=== PATIENT | female | born 1975 | race African-American/Black ===

== ENCOUNTER 2017-03-09 11:19 | Observation (INO) | payer BC ==
[~2017-03-09] VITALS: Ht 152.4 cm; Wt 86.6 kg
[~2017-03-09 11:19] MED LIST: CYCL-36 PO; LISI2.5T3 PO
[2017-03-09] MEDS ORDERED: IOHEXOL 350 MG/ML 10 ML VIAL (for RAD DIAG) IVCONTRAST ONE (11:20)
[2017-03-09 11:21] VITALS: BP 168/86; PULSE 20; PULSE 97; RESP 14; RESP 20; TEMP 99; O2SAT 97
[2017-03-09] MEDS ORDERED: ONDANSETRON HCL 4 MG/2 ML VIAL IV PUSH ONE (12:00)
[2017-03-09] MEDS ORDERED: PHENYLEPH/NS 1000 MCG/10 ML SYR IV ONE (12:00)
[2017-03-09] MEDS ORDERED: GLYCOPYRROLATE 1 MG/5 ML SYRINGE IV PUSH ONE (12:00)
[2017-03-09] MEDS ORDERED: KETOROLAC TROMETHAMINE 30 MG/ML (IVP) VIAL IV PUSH ONE (12:00)
[2017-03-09] MEDS ORDERED: DEXAMETHASONE SOD PHOS 4 MG/ML VIAL IV ONE (12:00)
[2017-03-09] MEDS ORDERED: PROPOFOL 200 MG/20 ML AMP IV ONE (12:00)
[2017-03-09] MEDS ORDERED: NEOSTIGMINE 5 MG/5 ML SYRINGE IV PUSH ONE (12:00)
[2017-03-09] MEDS ORDERED: LIDOCAINE HCL 1% PF 5 ML SYRINGE OTHER ONE (12:00)
[2017-03-09] MEDS ORDERED: ROCURONIUM INJ 50 MG/5 ML SYRINGE IV PUSH ONE (12:00)
[2017-03-09 12:20] LABS: AUTOMATED NEUTROPHIL # 11.9 TH/MM3 (1.8-7.7); BASOPHIL # 0.1 TH/MM3 (0-0.2); BASOPHIL % 0.5 % (0.0-2.0); EOSINOPHIL # 0.2 TH/MM3 (0-0.4); EOSINOPHIL % 1.4 % (0.0-4.0); HEMATOCRIT 35.9 % (35.0-46.0); HEMO FLAGS DIFF FINAL; LYMPH % 17.8 % (9.0-44.0); LYMPHOCYTE # 2.9 TH/MM3 (1.0-4.8); MEAN CELL VOLUME 82.5 FL (80.0-100.0); MEAN CORPUSCULAR HEMOGLOBIN 26.6 PG (27.0-34.0); MEAN CORPUSCULAR HGB CONC 32.2 % (32.0-36.0); MONO % 5.6 % (0.0-8.0); NEUT % 74.7 % (16.0-70.0); PLATELET COUNT 336 TH/MM3 (150-450); RED BLOOD COUNT 4.34 MIL/MM3 (4.00-5.30); RED CELL DISTRIBUTION WIDTH 15.2 % (11.6-17.2)
[2017-03-09 12:32] LABS: APTT (PATIENT) 30.8 SEC (24.3-30.1); PROTHROMBIN TIME - PATIENT 10.2 SEC (9.8-11.6)
[2017-03-09 12:38] LABS: ALT (GPT) 19 U/L (10-53); ANION GAP 5 MEQ/L (5-15); AST (GOT) 7 U/L (15-37); BICARBONATE 25.6 MEQ/L (21.0-32.0); BLOOD UREA NITROGEN 9 MG/DL (7-18); CHLORIDE 107 MEQ/L (98-107); GLOMERULAR FILTRATION RATE 80 ML/MIN (>89); POTASSIUM 3.5 MEQ/L (3.5-5.1); SODIUM (NA) 138 MEQ/L (136-145)
[2017-03-09 12:40] LABS: ALKALINE PHOSPHATASE 53 U/L (45-117); TOTAL BILIRUBIN ADULT 0.4 MG/DL (0.2-1.0)
[2017-03-09 12:43] LABS: BACTERIA, URINE OCC /hpf; BLOOD, URINE MOD (NEG); COMMENT (UR) CULT NOT INDICATED; CULTURE IF INDICATED CULT NOT INDICATED; GLUCOSE,URINE NEG (NEG); HYALINE CAST, URINE 1 /lpf (RARE); KETONE, URINE NEG (NEG); MUCUS URINE FEW /lpf (OCC); NITRITE,URINE NEG (NEG); PH, URINE 5.5 (5.0-8.5); SQUAMOUS EPITHELIAL CELL URINE 18 /hpf (0-5); URINE COLOR YELLOW (YELLW/STRAW)
[2017-03-09] MEDS ORDERED: KETOROLAC TROMETHAMINE 30 MG/ML (IVP) VIAL IVP ONE (13:00)
[2017-03-09] MEDS ORDERED: ONDANSETRON HCL 4 MG/2 ML VIAL IVP ONE (13:00)
[2017-03-09] MEDS ORDERED: LISI2.5T3 PO (13:01)
[2017-03-09] MEDS ORDERED: SUCR1TAB PO (13:01)
[2017-03-09] MEDS ORDERED: OMEP20TA93 PO (13:01)
--- NOTE | 2017-03-09 13:03 | PD ---
HPI Chief Complaint: Abdominal Pain Time Seen by Provider: 12:40 Travel History International Travel<30 days: No Contact w/Intl Traveler<30days: No Traveled to known affect area: No History of Present Illness HPI Patient is a 41-year-old female who presents to emergency room with complaints of abdominal pain. Patient reports that she began to have moderate to severe abdominal pain since this morning, Reports that the pain is more severe to her left lower quadrant. Reports that she has been feeling nauseous, denies any vomiting. Denies any fevers or chills. Denies dysuria, urinary urgency or frequency. Patient reports that she has not had any diarrhea or constipation. She initially thought that she may have eaten something funny last night as she did eat at the [facility], reports no other sick contacts. She has seen GI in the past and has had colonoscopy as well as EGD which showed possible colon polyps. PFSH Past Medical History Diminished Hearing: No Immune Disorder: Yes ?: Not Past Surgical History Section: Yes Hysterectomy: Yes Social History Alcohol Use: No Tobacco Use: No Substance Use: No Allergies-Medications (Allergen,Severity, Reaction): Coded Allergies: acetaminophen (Unverified Allergy, Severe, UNKNOWN, 03/09/17) propoxyphene (Unverified Allergy, Severe, UNKNOWN, 03/09/17) morphine (Unverified Adverse Reaction, Severe, VOMITING, 03/09/17) Reported Meds & Prescriptions Reported Meds & Active Scripts Active Reported Omeprazole 20 Mg Tab 20 Mg PO DAILY Sucralfate 1 Gram Tab 1 Gm PO QID on empty stomach Lisinopril 2.5 Mg Tab 2.5 Mg PO DAILY Review of Systems General / Constitutional: Positive: Fever, Chills Eyes: No: Visual changes HENT: No: Headaches Cardiovascular: No: Chest Pain or Discomfort, Palpitations, Irregular Rhythm Respiratory: No: Cough, Shortness of Breath, Wheezing Gastrointestinal: Positive: Nausea, Abdominal Pain, No: Vomiting, Diarrhea Genitourinary: No: Urgency, Frequency, Dysuria, Hematuria, Hesitancy Musculoskeletal: No: Pain Skin: No Rash Neurologic: No: Weakness Psychiatric: No: Depression Endocrine: No: Polydipsia Hematologic/Lymphatic: No: Easy Bruising Physical Exam Narrative GENERAL: Moderate distress SKIN: Focused skin assessment warm/dry. HEAD: Atraumatic. Normocephalic. EYES: Pupils equal and round. No scleral icterus. No injection or drainage. ENT: No nasal bleeding or discharge. Mucous membranes pink and moist. NECK: Trachea midline. No JVD. CARDIOVASCULAR: Regular rate and rhythm. No murmur appreciated. RESPIRATORY: No accessory muscle use. Clear to auscultation. Breath sounds equal bilaterally. GASTROINTESTINAL: Abdomen soft, increased tenderness to LLQ with guarding on exam. Hepatic and splenic margins not palpable. MUSCULOSKELETAL: No obvious deformities. No clubbing. No cyanosis. No edema. NEUROLOGICAL: Awake and alert. Motor grossly within normal limits. Normal speech. PSYCHIATRIC: Appropriate mood and affect; insight and judgment normal. Data Data Last Documented VS Vital Signs Date Time Temp Pulse Resp B/P (MAP) Pulse Ox O2 Delivery O2 Flow Rate FiO2 03/09/17 11:21 99.0 97 20 168/86 (113) 97 Orders Orders Complete Blood Count With Diff (03/09/17 11:49) Comprehensive Metabolic Panel (03/09/17 11:49) Lipase (03/09/17 11:49) Prothrombin Time / Inr (Pt) (03/09/17 11:49) Act Partial Throm Time (Ptt) (03/09/17 11:49) Urinalysis - C+S If Indicated (03/09/17 11:49) Ct Abd/Pel W Iv Contrast(Rout) (03/09/17 12:55) Ondansetron Inj (Zofran Inj) (03/09/17 13:00) Ketorolac Inj (Toradol Inj) (03/09/17 13:00) Vascular Access Team Consult/P PRN (03/09/17 13:22) Vascular Poc Ultrasound (03/09/17 ) Ketorolac Inj (Toradol Inj) (03/09/17 14:15) Sodium Chlor 0.9% 1000 Ml Inj (Ns 1000 M (03/09/17 17:00) Iohexol 350 Inj (Omnipaque 350 Inj) (03/09/17 11:20) Piperacil-Tazo 3.375 Gm Premix (Zosyn 3. (03/09/17 17:15) Diet Npo (03/09/17 Dinner) Consult General Surgery (03/09/17 ) Labs Laboratory Tests Test 03/09/17 12:00 03/09/17 12:02 Urine Color YELLOW Urine Turbidity HAZY Urine pH 5.5 Urine Specific [place] 1.024 Urine Protein TRACE mg/dL Urine Glucose (UA) NEG mg/dL Urine Ketones NEG mg/dL Urine Occult Blood MOD Urine Nitrite NEG Urine Bilirubin NEG Urine Urobilinogen LESS THAN 2.0 MG/DL Urine Leukocyte Esterase NEG Urine RBC 16 /hpf Urine WBC 1 /hpf Urine Squamous Epithelial Cells 18 /hpf Urine Bacteria OCC /hpf Urine Hyaline Casts 1 /lpf Urine Mucus FEW /lpf Microscopic Urinalysis Comment CULT NOT INDICATED White Blood Count 16.0 TH/MM3 Red Blood Count 4.34 MIL/MM3 Hemoglobin 11.5 GM/DL Hematocrit 35.9 % Mean Corpuscular Volume 82.5 FL Mean Corpuscular Hemoglobin 26.6 PG Mean Corpuscular Hemoglobin Concent 32.2 % Red Cell Distribution Width 15.2 % Platelet Count 336 TH/MM3 Mean Platelet Volume 6.9 FL Neutrophils (%) (Auto) 74.7 % Lymphocytes (%) (Auto) 17.8 % Monocytes (%) (Auto) 5.6 % Eosinophils (%) (Auto) 1.4 % Basophils (%) (Auto) 0.5 % Neutrophils # (Auto) 11.9 TH/MM3 Lymphocytes # (Auto) 2.9 TH/MM3 Monocytes # (Auto) 0.9 TH/MM3 Eosinophils # (Auto) 0.2 TH/MM3 Basophils # (Auto) 0.1 TH/MM3 CBC Comment DIFF FINAL Differential Comment Prothrombin Time 10.2 SEC Prothromb Time International Ratio 1.0 RATIO Activated Partial Thromboplast Time 30.8 SEC Blood Urea Nitrogen 9 MG/DL Creatinine 0.93 MG/DL Random Glucose 94 MG/DL Total Protein 7.8 GM/DL Albumin 3.7 GM/DL Calcium Level 9.1 MG/DL Alkaline Phosphatase 53 U/L Aspartate Amino Transf (AST/SGOT) 7 U/L Alanine Aminotransferase (ALT/SGPT) 19 U/L Total Bilirubin 0.4 MG/DL Sodium Level 138 MEQ/L Potassium Level 3.5 MEQ/L Chloride Level 107 MEQ/L Carbon Dioxide Level 25.6 MEQ/L Anion Gap 5 MEQ/L Estimat Glomerular Filtration Rate 80 ML/MIN Lipase 370 U/L MDM Medical Decision Making Medical Screen Exam Complete: Yes Emergency Medical Condition: Yes Medical Record Reviewed: Yes Interpretation(s) Vital Signs Date Time Temp Pulse Resp B/P (MAP) Pulse Ox O2 Delivery O2 Flow Rate FiO2 03/09/17 11:21 99.0 97 20 168/86 (187) 97 Differential Diagnosis Diverticulitis, colitis, appendicitis, gastroenteritis, cystitis Narrative Course Patient is a 41 year old female who presents to ER with complaints of lower abdominal pain (worst in LLQ) since this morning. During the course of the patients emergency department visit, the patients history, examination, and differential diagnosis were reviewed with the patient. The patient was placed on a environmental monitoring technician with oximetry and frequent blood pressure monitoring. The patient had an IV access obtained and blood work sent for analysis. The patient was initially provided IVF. IV toradol as well as IV zofran. The patients laboratory studies were reviewed and remarkable for: Laboratory Tests Test 03/09/17 12:00 03/09/17 12:02 Urine Color YELLOW (YELLW/STRAW) Urine Turbidity HAZY (CLEAR) Urine pH 5.5 (5.0-8.5) Urine Specific [place] 1.024 (1.002-1.035) Urine Protein TRACE mg/dL (NEG-TRACE) Urine Glucose (UA) NEG mg/dL (NEG) Urine Ketones NEG mg/dL (NEG) Urine Occult Blood MOD (NEG) Urine Nitrite NEG (NEG) Urine Bilirubin NEG (NEG) Urine Urobilinogen LESS THAN 2.0 MG/DL (LESS Urine Leukocyte Esterase NEG (NEG) Urine RBC 16 /hpf (0-3) Urine WBC 1 /hpf (0-5) Urine Squamous Epithelial Cells 18 /hpf (0-5) Urine Bacteria OCC /hpf (NONE) Urine Hyaline Casts 1 /lpf (RARE) Urine Mucus FEW /lpf (OCC) Microscopic Urinalysis Comment CULT NOT INDICATED White Blood Count 16.0 TH/MM3 (4.0-11.0) Red Blood Count 4.34 MIL/MM3 (4.00-5.30) Hemoglobin 11.5 GM/DL (11.6-15.3) Hematocrit 35.9 % (35.0-46.0) Mean Corpuscular Volume 82.5 FL (80.0-100.0) Mean Corpuscular Hemoglobin 26.6 PG (27.0-34.0) Mean Corpuscular Hemoglobin Concent 32.2 % (32.0-36.0) Red Cell Distribution Width 15.2 % (11.6-17.2) Platelet Count 336 TH/MM3 (150-450) Mean Platelet Volume 6.9 FL (7.0-11.0) Neutrophils (%) (Auto) 74.7 % (16.0-70.0) Lymphocytes (%) (Auto) 17.8 % (9.0-44.0) Monocytes (%) (Auto) 5.6 % (0.0-8.0) Eosinophils (%) (Auto) 1.4 % (0.0-4.0) Basophils (%) (Auto) 0.5 % (0.0-2.0) Neutrophils # (Auto) 11.9 TH/MM3 (1.8-7.7) Lymphocytes # (Auto) 2.9 TH/MM3 (1.0-4.8) Monocytes # (Auto) 0.9 TH/MM3 (0-0.9) Eosinophils # (Auto) 0.2 TH/MM3 (0-0.4) Basophils # (Auto) 0.1 TH/MM3 (0-0.2) CBC Comment DIFF FINAL Differential Comment Prothrombin Time 10.2 SEC (9.8-11.6) Prothromb Time International Ratio 1.0 RATIO Activated Partial Thromboplast Time 30.8 SEC (24.3-30.1) Blood Urea Nitrogen 9 MG/DL (7-18) Creatinine 0.93 MG/DL (0.50-1.00) Random Glucose 94 MG/DL (74-106) Total Protein 7.8 GM/DL (6.4-8.2) Albumin 3.7 GM/DL (3.4-5.0) Calcium Level 9.1 MG/DL (8.5-10.1) Alkaline Phosphatase 53 U/L (45-117) Aspartate Amino Transf (AST/SGOT) 7 U/L (15-37) Alanine Aminotransferase (ALT/SGPT) 19 U/L (10-53) Total Bilirubin 0.4 MG/DL (0.2-1.0) Sodium Level 138 MEQ/L (136-145) Potassium Level 3.5 MEQ/L (3.5-5.1) Chloride Level 107 MEQ/L (98-107) Carbon Dioxide Level 25.6 MEQ/L (21.0-32.0) Anion Gap 5 MEQ/L (5-15) Estimat Glomerular Filtration Rate 80 ML/MIN (>89) Lipase 370 U/L (73-393) Radiology studies were reviewed and remarkable for acute appendicitis. Case reviewed with Dr. Joshi, will keep npo and admit to his service Diagnosis Primary Impression: Appendicitis Qualified Codes: K35.3 - Acute appendicitis with localized peritonitis Admitting Information Admitting Physician Requests: Shereen Sierra DO Mar 09, 2017 13:03
[2017-03-09] MEDS ORDERED: KETOROLAC TROMETHAMINE 60 MG/2 ML (IM) VIAL IM ONE (14:15)
[2017-03-09] MEDS ORDERED: SODIUM CHLOR 0.9% 1000 ML INJ 1,000 ML IV ONE (17:00)
--- NOTE | 2017-03-09 17:02 | RADRPT ---
EXAM DATE/TIME: 03/09/2017 16:33 [facility] COMPARISON: CT ABDOMEN & PELVIS W CONTRAST, December 21, 2009, 5:39. INDICATIONS : Patient complains of abdominal pain. IV CONTRAST: 100 cc Omnipaque 350 (iohexol) IV ORAL CONTRAST: No oral contrast ingested. RADIATION DOSE: 12.82 CTDIvol (mGy) MEDICAL HISTORY : None SURGICAL HISTORY : Hysterectomy. ENCOUNTER: Initial ACUITY: 1 day PAIN SCALE: 10/10 LOCATION: Bilateral abdomen TECHNIQUE: Volumetric scanning of the abdomen and pelvis was performed. Using automated exposure control and ad justment of the mA and/or kV according to patient size, radiation dose was kept as low as reasonably achievable to obtain optimal diagnostic quality images. DICOM format image data is available electro nically for review and comparison. FINDINGS: LOWER LUNGS: The visualized lower lungs are clear. LIVER: Homogeneous density without lesion. There is no dilation of the biliary tree. No calcified gallston es. SPLEEN: Normal size without lesion. PANCREAS: Within normal limits. KIDNEYS: Normal in size and shape. There is no mass, stone or hydronephrosis. ADRENAL GLANDS: Within normal limits. VASCULAR: There is no aortic aneurysm. BOWEL/MESENTERY: Appendix is enlarged and moderately inflamed with moderate jennifer-appendiceal stranding. No focal drain able fluid collection or free air at this time. Bowel is otherwise grossly unremarkable. ABDOMINAL WALL: Within normal limits. RETROPERITONEUM: There is no lymphadenopathy. BLADDER: No wall thickening or mass. REPRODUCTIVE: Within normal limits. INGUINAL: There is no lymphadenopathy or hernia. MUSCULOSKELETAL: Within normal limits for patient age. CONCLUSION: 1. Findings consistent with appendicitis. Despite prominent periappendiceal inflammatory change, ther e is no evidence for abscess or perforation at this time. Deni Roy MD on March 09, 2017 at 16:56 Board Certified Radiologist. This report was verified electronically.
[2017-03-09] MEDS ORDERED: PIPERACIL-TAZO 3.375 GM PREMIX 50 ML IV ONE (17:15)
[2017-03-09 18:03] VITALS: BP 159/94; PULSE 79; RESP 16; TEMP 99.1; O2SAT 98
[2017-03-09] MEDS ORDERED: ACETAMINOPHEN 1000 MG/100 ML 100 ML IV ONE (18:16)
[2017-03-09] MEDS ORDERED: MIDAZOLAM HCL 2 MG/2 ML VIAL ONE (18:16)
[2017-03-09] MEDS ORDERED: BUPIVACAINE/EPINEPHRINE 0.5% PF 10 ML VIAL ONE (18:36)
--- NOTE | 2017-03-09 20:25 | MH ---
cc: IVONNE JOSHI M.D. DATE OF ADMISSION 03/09/2017 REASON FOR ADMISSION Acute appendicitis with elevated white count. HISTORY This is a pleasant 41-year-old -[place] female who began experiencing some abdominal pain yesterday. It was somewhat all around, now became more severe in the right lower quadrant. She came into the emergency room to be evaluated and she was felt to have possible appendicitis. This was confirmed with radiologic imaging. Surgery was consulted to take over her care. PAST MEDICAL HISTORY 1. She has had a hysterectomy. 2. C-sections in the past. 3. She has had a colonoscopy and EGD in the past as well. 4. She has some hypertension that is treated with antihypertensives. 5. Some reflux. REVIEW OF SYSTEMS On review of systems she had some mild fever and chills. She has had no neurologic or visual changes. No chest pain or shortness of breath. No respiratory issues like a cough or shortness of breath or wheezing. Her abdominal GI symptomatology as above with some nausea and this abdominal pain. She has had no new urinary symptoms of urgency, frequency. No muscular pain. No weakness or psychiatric problems. PHYSICAL EXAMINATION GENERAL: On physical exam she is a healthy-appearing -[place] female who is obviously in mild distress because of her medical condition. NECK: Her neck is supple. CHEST: Clear. HEART: Regular rate. ABDOMEN: Slightly obese, soft with exquisite tenderness in the right lower quadrant with rebound and guarding. She has no tenderness whatsoever on the left side. NEUROLOGIC: She is awake and alert. LABORATORY DATA On laboratory data she has a white count of 16,000. H&H of 11 and 35 with normal lipase and normal LFTs. IMAGING Radiologic imaging showing appendicitis on CT scan. ASSESSMENT A 41-year-old female with clinical symptomatology consistent with appendicitis, elevated white count, rebound and guarding confirmed with radiologic imaging showing appendicitis on the official reading. PLAN Laparoscopic appendectomy. This was discussed with the patient and family at the bedside. They appeared to understand. We will proceed as soon as time is ready in the operating room. Ivonne Joshi MD JDB/KHADIJAH /7:30 PM /8:07 PM
[2017-03-09] MEDS ORDERED: DO NOT ADM ANY ANTICOAGULANT DRUGS PRN (20:45)
[2017-03-09] MEDS ORDERED: IBUPROFEN 600 MG TAB PO PRN (20:45)
[2017-03-09] MEDS ORDERED: SODIUM CHLORIDE 0.9% FLUSH 10 ML FLUSH IV FLUSH PRN (20:45)
[2017-03-09] MEDS ORDERED: ONDANSETRON HCL 4 MG/2 ML VIAL IV PUSH PRN (20:45)
[2017-03-09] MEDS ORDERED: Post-op Orders (for Pharmacy) XX ONE (20:45)
[2017-03-09] MEDS: SODIUM CHLOR 0.9% 1000 ML INJ 1,000 ML IV SCH (20:55)
[2017-03-09] MEDS: ACETAMINOPHEN 1000 MG/100 ML 100 ML IV SCH (21:00)
[2017-03-09] MEDS: SODIUM CHLORIDE 0.9% FLUSH 10 ML FLUSH IV FLUSH SCH (21:00)
[2017-03-09] MEDS: traMADol HCL 50 MG TAB PO PRN (23:54)
[2017-03-10] VITALS (7 sets, daily range): BP systolic 121–129; BP diastolic 64–76; PULSE 87–113; RESP 17–20; TEMP 97.1–100.7; O2SAT 94–100
[2017-03-10] MEDS: ACETAMINOPHEN 1000 MG/100 ML 100 ML IV SCH ×3 (02:44→15:47)
[2017-03-10] MEDS: KETOROLAC TROMETHAMINE 30 MG/ML (IVP) VIAL IVP PRN ×2 (05:12→18:30)
[2017-03-10] MEDS: SODIUM CHLOR 0.9% 1000 ML INJ 1,000 ML IV SCH (06:46)
[2017-03-10] MEDS: traMADol HCL 50 MG TAB PO PRN ×2 (08:23→20:57)
[2017-03-10] MEDS: SODIUM CHLORIDE 0.9% FLUSH 10 ML FLUSH IV FLUSH SCH ×2 (08:24→20:08)
[2017-03-10] MEDS ORDERED: PILL SPLITTER OTHER PRN (10:45)
[2017-03-10] MEDS: LISINOPRIL 5 MG TAB PO SCH (11:02)
[2017-03-10] MEDS ORDERED: TRAM50 PO (12:12)
[2017-03-10] MEDS: SUCRALFATE 1 GM TAB PO SCH ×3 (12:32→20:08)
--- NOTE | 2017-03-10 17:37 | HHI.PR ---
cc: Salo Joshi MD Subjective Subjective Notes DAILY PROGRESS NOTE FOR SURGICAL ATTENDING, DR. SALO JOSHI Resting in bed new onset of chills this evening; temperature 102.9 Abdominal pain improved Objective Vitals/I&O Vital Signs Date Time Temp Pulse Resp B/P (MAP) Pulse Ox O2 Delivery O2 Flow Rate FiO2 03/10/17 16:00 100.7 113 17 125/76 (92) 96 03/09/17 21:43 Nasal Cannula 3 Radiology Last Impressions Abdomen/Pelvis CT 03/09/17 1255 Signed Impressions: Service Date/Time: Thursday, March 09, 2017 16:33 - CONCLUSION: 1. Findings consistent with appendicitis. Despite prominent periappendiceal inflammatory change, there is no evidence for abscess or perforation at this time. Deni Roy MD Cardiovascular: Regular Lungs: Clear Abdomen: Non-distended, Post-op tenderness Extremities: No edema A/P Problem List: (1) S/P laparoscopic appendectomy ICD Codes: Z90.49 - Acquired absence of other specified parts of digestive tract (2) Fever and chills ICD Codes: R50.9 - Fever, unspecified Status: Acute Assessment and Plan 41 year old female POD1 lap appy -Was all set up ready to go home but developed temperature this evening -Continue IV Ofirmiv -Added Zosyn -1L NS bolus -Added maintenance fluids -IS -Will hold DC for tonight -Discussed with CRESCENCIO Castro Attending Statement NOTE FOR SURGICAL ATTENDING, DR. SALO JOSHI Patient was doing fairly well today and leave the halls twice Developed fever and chill later in the afternoon. We'll delay discharge See orders Abdominal discomfort much improved from preoperative state. I agree with above assessment and plan. The exam, history, and the medical decision-making described in the above note were completed with the assistance of the mid-level provider. I reviewed and agree with the findings presented. I attest that I had a [id number] encounter with the patient on the same day, and personally performed and documented my assessment and findings in the medical record. The following services were provided during this hospital visit: Chart data review, vital sign assessments/reviewing monitor data Review of consultations notes if present. Medication orders/review and/or management Ordering and/or reviewing lab tests Ordering and/or interpreting/reviewing x-rays and/or diagnostic studies Care of the patient and discussion of the patient with the care team Documentation time To help prompt me to consider important information that might be impacting today's encounter and assessment, information from prior notes written by myself or my colleagues may have been "brought forward/copy and pasted" into today's note. Kanika Palma Mar 10, 2017 17:36 Salo Joshi MD Mar 10, 2017 17:58
[2017-03-10] MEDS ORDERED: SODIUM CHLOR 0.9% 1000 ML INJ 1,000 ML IV ONE (17:45)
--- NOTE | 2017-03-10 19:09 | RADRPT ---
EXAM DATE/TIME: 03/10/2017 18:23 [facility] COMPARISON: CHEST SINGLE AP, December 21, 2009, 4:38. INDICATIONS : Fever. MEDICAL HISTORY : Hysterectomy. SURGICAL HISTORY : None. ENCOUNTER: Initial ACUITY: 1 day PAIN SCORE: 0/10 LOCATION: Bilateral chest FINDINGS: There is a new oblique opacity in the central medial right lung which may represent discoid atelectas is or fluid in the minor fissure. The remainder of the lungs are clear. The heart is normal in size . Both hemidiaphragms are well delineated. CONCLUSION: Opacity in the central right lung may represent atelectasis or fluid in the minor fissure. Shmuel Swift MD on March 10, 2017 at 19:06 Board Certified Radiologist. This report was verified electronically.
[2017-03-10 21:06] LABS: AUTOMATED NEUTROPHIL # 8.8 TH/MM3 (1.8-7.7); BASOPHIL % 0.3 % (0.0-2.0); HEMATOCRIT 31.2 % (35.0-46.0); HEMO FLAGS DIFF FINAL; LYMPH % 7.3 % (9.0-44.0); LYMPHOCYTE # 0.7 TH/MM3 (1.0-4.8); MEAN CORPUSCULAR HEMOGLOBIN 26.7 PG (27.0-34.0); MEAN CORPUSCULAR HGB CONC 32.9 % (32.0-36.0); MONO % 3.3 % (0.0-8.0); NEUT % 89.1 % (16.0-70.0); PLATELET COUNT 249 TH/MM3 (150-450); RED BLOOD COUNT 3.85 MIL/MM3 (4.00-5.30); RED CELL DISTRIBUTION WIDTH 15.1 % (11.6-17.2); WHITE BLOOD COUNT 9.9 TH/MM3 (4.0-11.0)
[2017-03-10 21:25] LABS: BICARBONATE 22.7 MEQ/L (21.0-32.0)
[2017-03-10] MEDS ORDERED: POTASSIUM CHLORIDE 10 MEQ CONTROLLED RELEASE TAB PO ONE (21:45)
--- NOTE | 2017-03-10 22:25 | MP ---
cc: SALO JOSHI M.D. DATE OF SURGERY 03/09/2017 PREOPERATIVE DIAGNOSIS Acute appendicitis. POSTOPERATIVE DIAGNOSIS Acute appendicitis. PROCEDURE Laparoscopic appendectomy. ANESTHESIA General. SURGEON Dr. Joshi. INDICATION This is a pleasant 41-year-old female who had classic clinical signs and symptomatology confirmed with radiologic imaging of appendicitis. Plans were made for above. PROCEDURE The patient was taken to the operating room and placed in the supine position. After anesthesia a time-out was done. She had already gotten antibiotics. We make an incision just above the umbilicus after prepping and draping with Betadine. A Veress needle was inserted. The saline load test performed and the abdomen is insufflated up to 15 mmHg. A 10 mm trocar was introduced. The camera was introduced. Two other working ports were placed in the midline. The appendix can be seen. It is obviously inflamed, somewhat retrocecal and twisted upon itself. I was able to dissect this free using blunt dissection, the harmonic scalpel and hydrodissection identifying the appendiceal artery which is ligated and cauterized with the harmonic scalpel. Once this is freed up we tie off the base of the appendix with two Endoloop PDS. The appendix is then amputated, placed in the EndoCatch and passed off the field. After this was done we then irrigate copiously removing any cloudy fluid. Scar tissue in the pelvis from previous surgery. The CO2 is removed. The trocars were removed. The umbilical incision closed with 0 Vicryl at the fascial layer. Skin is closed with 4-0 Vicryl. Steri-Strips applied. Sterile bandage applied. The patient had no immediate postop complications. Salo Joshi MD JANIVAL/KHADIJAH /8:24 PM /10:17 PM [facility]
[2017-03-11] VITALS: BP 124/59; PULSE 99; RESP 20; TEMP 99; O2SAT 94
[2017-03-11] MEDS: SODIUM CHLOR 0.9% 1000 ML INJ 1,000 ML IV SCH ×4 (01:32→20:24)
[2017-03-11] MEDS: PIPERACIL-TAZO 3.375 GM PREMIX 50 ML IV SCH ×3 (03:07→17:10)
[2017-03-11 07:37] VITALS: BP 143/82; PULSE 104; RESP 20; TEMP 100.3; O2SAT 95
[2017-03-11] MEDS: PANTOPRAZOLE SOD 20 MG DELAYED RELEASE TAB PO SCH (08:23)
[2017-03-11] MEDS: LISINOPRIL 5 MG TAB PO SCH (08:24)
[2017-03-11] MEDS: SODIUM CHLORIDE 0.9% FLUSH 10 ML FLUSH IV FLUSH SCH ×2 (08:24→20:23)
[2017-03-11] MEDS: SUCRALFATE 1 GM TAB PO SCH ×4 (08:24→20:23)
--- NOTE | 2017-03-11 09:47 | HHI.PR ---
cc: Ivonne Diallo MD Subjective Subjective Notes DAILY PROGRESS NOTE FOR SURGICAL ATTENDING, DR. IVONNE DIALLO Feels better Re: ambulated in the halls Waiting for breakfast No more fevers Objective Vitals/I&O Vital Signs Date Time Temp Pulse Resp B/P (MAP) Pulse Ox O2 Delivery O2 Flow Rate FiO2 03/11/17 07:37 100.3 104 20 143/82 (102) 95 03/09/17 21:43 Nasal Cannula 3 Labs Laboratory Tests Test 03/10/17 20:47 White Blood Count 9.9 Red Blood Count 3.85 Hemoglobin 10.3 Hematocrit 31.2 Mean Corpuscular Volume 81.0 Mean Corpuscular Hemoglobin 26.7 Mean Corpuscular Hemoglobin Concent 32.9 Red Cell Distribution Width 15.1 Platelet Count 249 Mean Platelet Volume 7.2 Neutrophils (%) (Auto) 89.1 Lymphocytes (%) (Auto) 7.3 Monocytes (%) (Auto) 3.3 Eosinophils (%) (Auto) 0.0 Basophils (%) (Auto) 0.3 Neutrophils # (Auto) 8.8 Lymphocytes # (Auto) 0.7 Monocytes # (Auto) 0.3 Eosinophils # (Auto) 0.0 Basophils # (Auto) 0.0 CBC Comment DIFF FINAL Differential Comment Blood Urea Nitrogen 7 Creatinine 1.17 Random Glucose 146 Calcium Level 7.8 Sodium Level 135 Potassium Level 3.0 Chloride Level 102 Carbon Dioxide Level 22.7 Anion Gap 10 Estimat Glomerular Filtration Rate 61 Radiology Last 72 hours Impressions Chest X-Ray 03/10/17 0000 Signed Impressions: Service Date/Time: Friday, March 10, 2017 18:23 - CONCLUSION: Opacity in the central right lung may represent atelectasis or fluid in the minor fissure. Shmuel Swift MD Abdomen/Pelvis CT 03/09/17 1255 Signed Impressions: Service Date/Time: Thursday, March 09, 2017 16:33 - CONCLUSION: 1. Findings consistent with appendicitis. Despite prominent periappendiceal inflammatory change, there is no evidence for abscess or perforation at this time. Deni Roy MD Last Impressions Abdomen/Pelvis CT 03/09/17 1255 Signed Impressions: Service Date/Time: Thursday, March 09, 2017 16:33 - CONCLUSION: 1. Findings consistent with appendicitis. Despite prominent periappendiceal inflammatory change, there is no evidence for abscess or perforation at this time. Deni Roy MD Cardiovascular: Regular Lungs: Clear Abdomen: Non-distended, Post-op tenderness Extremities: Perfused Wound Wound : Appearance: Clean & Dry Dressing: Dry (midline port sites) A/P Problem List: (1) Postoperative fever ICD Codes: R50.82 - Postprocedural fever Status: Acute (2) Fever and chills ICD Codes: R50.9 - Fever, unspecified Status: Acute (3) S/P laparoscopic appendectomy ICD Codes: Z90.49 - Acquired absence of other specified parts of digestive tract Status: Acute Assessment and Plan 41-year-old female status post laparoscopic appendectomy with a postoperative fever that seems to have resolved White count 9. She's arty ambulating the halls To try to transfer diet today possible discharge after lunch depending on clinical status Follow-up my office next week if she is discharged today Attending Statement NOTE FOR SURGICAL ATTENDING, DR. IVONNE DIALLO I attest that I had a [id number] encounter with the patient on the same day, and personally performed and documented my assessment and findings in the medical record. The following services were provided during this hospital visit: Chart data review, vital sign assessments/reviewing monitor data Review of consultations notes if present. Medication orders/review and/or management Ordering and/or reviewing lab tests Ordering and/or interpreting/reviewing x-rays and/or diagnostic studies Care of the patient and discussion of the patient with the care team Documentation time To help prompt me to consider important information that might be impacting today's encounter and assessment, information from prior notes written by myself or my colleagues may have been "brought forward/copy and pasted" into today's note. Ivonne Diallo MD Mar 11, 2017 09:47
[2017-03-11] MEDS ORDERED: AUGM875T3 PO (10:18)
[2017-03-11] MEDS: traMADol HCL 50 MG TAB PO PRN ×2 (10:36→20:22)
[2017-03-11] MEDS ORDERED: ACETAMINOPHEN 325 MG TAB PO PRN (11:30)
[2017-03-11 12:00] VITALS: BP 159/88; PULSE 99; RESP 19; TEMP 101.3; O2SAT 95
[2017-03-11 13:23] VITALS: TEMP 100.4
[2017-03-11 16:00] VITALS: BP_SYST 126; BP_SYST 155; BP_DIAS 71; BP_DIAS 72; PULSE 73; PULSE 94; RESP 18; RESP 20; TEMP 98.4; TEMP 99.5; O2SAT 100; O2SAT 96
[2017-03-11 20:00] VITALS: BP 144/89; PULSE 106; RESP 21; TEMP 100.8; O2SAT 93
[2017-03-12] VITALS: BP 102/70; PULSE 72; RESP 19; TEMP 98.4; O2SAT 95
[2017-03-12] MEDS: PIPERACIL-TAZO 3.375 GM PREMIX 50 ML IV SCH ×2 (01:57→10:00)
[2017-03-12 04:00] VITALS: TEMP 97.2
[2017-03-12 08:00] VITALS: BP 145/86; PULSE 97; RESP 20; TEMP 99.6; O2SAT 95
[2017-03-12] MEDS: SODIUM CHLORIDE 0.9% FLUSH 10 ML FLUSH IV FLUSH SCH (09:00)
[2017-03-12] MEDS: SUCRALFATE 1 GM TAB PO SCH (09:00)
[2017-03-12] MEDS: PANTOPRAZOLE SOD 20 MG DELAYED RELEASE TAB PO SCH (09:13)
[2017-03-12] MEDS: LISINOPRIL 5 MG TAB PO SCH (09:13)
[2017-03-12] MEDS: traMADol HCL 50 MG TAB PO PRN (09:18)
[2017-03-12 12:00] VITALS: BP 170/97; PULSE 99; RESP 19; TEMP 99.7; O2SAT 100
--- NOTE | 2017-03-12 13:18 | HHI.DS ---
Discharge Summary Admission Date Mar 09, 2017 at 17:12 Discharge Date: Mar 12, 2017 Admitting Diagnosis acute appendicitis (1) Postoperative fever ICD Codes: R50.82 - Postprocedural fever Status: Acute (2) Fever and chills ICD Codes: R50.9 - Fever, unspecified Status: Acute (3) S/P laparoscopic appendectomy ICD Codes: Z90.49 - Acquired absence of other specified parts of digestive tract Status: Acute Brief History 41 year old female s/p lap appy; post operative fevers CBC/BMP: 03/10/17204603/10/172046 Significant Findings Laboratory Tests Test 03/10/17 20:47 Red Blood Count 3.85 MIL/MM3 (4.00-5.30) Hemoglobin 10.3 GM/DL (11.6-15.3) Hematocrit 31.2 % (35.0-46.0) Mean Corpuscular Hemoglobin 26.7 PG (27.0-34.0) Neutrophils (%) (Auto) 89.1 % (16.0-70.0) Lymphocytes (%) (Auto) 7.3 % (9.0-44.0) Neutrophils # (Auto) 8.8 TH/MM3 (1.8-7.7) Lymphocytes # (Auto) 0.7 TH/MM3 (1.0-4.8) Creatinine 1.17 MG/DL (0.50-1.00) Random Glucose 146 MG/DL (74-106) Calcium Level 7.8 MG/DL (8.5-10.1) Sodium Level 135 MEQ/L (136-145) Potassium Level 3.0 MEQ/L (3.5-5.1) Estimat Glomerular Filtration Rate 61 ML/MIN (>89) PE at Discharge Resting in bed; smiling today Cardio: RRR Resp: CTAB Abd: lap sites c/d/i; abdomen soft Hospital Course This is a 41 year old female s/p lap appy. Postoperatively the patient had a fever; temperature max of 102.9. The patient was started on Zosyn and IV fluids. The patient's fevers were treated with Tylenol. The patient was able to tolerate a regular diet. Her pain was controlled using Tramadol. She was sent home with a prescription for Augmentin. She will follow up in the office. Pt Condition on Discharge: Good Discharge Disposition: Discharge Home Discharge Instructions DIET: Follow Instructions for: As Tolerated, No Restrictions Activities you can perform: See Additionl Instruction Other Activity Instructions: Okay to shower; pat incisions dry No baths or swimming pool Avoid heavy pushing pulling or lifting Attending Statement NOTE FOR SURGICAL ATTENDING, DR. IVONNE JOSHI I agree with above assessment and plan. The exam, history, and the medical decision-making described in the above note were completed with the assistance of the mid-level provider. I reviewed and agree with the findings presented. The following services were provided during this hospital visit: Chart data review, vital sign assessments/reviewing monitor data Review of consultations notes if present. Medication orders/review and/or management Ordering and/or reviewing lab tests Ordering and/or interpreting/reviewing x-rays and/or diagnostic studies Care of the patient and discussion of the patient with the care team Documentation time To help prompt me to consider important information that might be impacting today's encounter and assessment, information from prior notes written by myself or my colleagues may have been "brought forward/copy and pasted" into today's note. Kanika Palma Mar 12, 2017 13:18 Ivonne Joshi MD Mar 12, 2017 14:59
== END 2017-03-12 14:07 | disposition home or self-care (01) ==
LOC: NEPD 11:19 → UNDOADMOB 17:12 → NEDA 17:12 → HPAC 18:59 → INTOOBSV 20:34 → OBSVTOIN 20:34 → N07A 22:02
PROVIDERS: ADMIT Surgery; ATTEND Surgery
DX: K35.3 Acute appendicitis with localized peritonitis (principal); R50.82 Postprocedural fever; I10 Essential (primary) hypertension; K21.9 Gastro-esophageal reflux disease without esophagitis; Z79.899 Other long term (current) drug therapy; Z90.710 Acquired absence of both cervix and uterus
CPT/HCPCS: 00840; 44970; 71010; 74177; 76937; 80048; 80053; 81001; 83690; 85025; 85610; 85730; 86850; 86900; 86901; 88304; 94150; 96361; 96365; 96366; 96367; 96372; 96375; 96376; 99285; G0378; J0131; J1100; J1885; J2250; J2370; J2405; J2543; J2710; J3010; J7030; Q9967